=== PATIENT | male | born 1990 | race Caucasian/White ===

== ENCOUNTER → 2017-11-05 | Outpatient (CLI) | payer BC ==
--- NOTE | 2017-11-05 13:00 | CT ---
EXAMINATION TYPE: CT abdomen w con DATE OF EXAM: 11/05/2017 COMPARISON: NONE HISTORY: Upper Abdominal pain with nausea for 4-[address] DLP: 1335 mGycm Automated exposure control for dose reduction was used. TECHNIQUE: Helical acquisition of images was performed from the lung bases through the top of iliac crest to include entire abdomen. CONTRAST: Performed with Oral Contrast and with IV Contrast, patient injected with 93 mL of Isovue 300. FINDINGS: LUNG BASES: Punctate granulomas seen within the right lower lobe on series 4 image 8 and series 3 lucinda ge [id number]. Minimal right basilar subsegmental atelectasis is seen. LIVER/GB: No radiopaque calculi. The liver enhances homogeneously. PANCREAS: No significant abnormality is seen. No ductal dilatation. SPLEEN: No splenomegaly. ADRENALS: No thickening or nodularity. KIDNEYS: No hydronephrosis. The kidneys enhance and excrete symmetrically. BOWEL: No dilated bowel to indicate obstruction. Very mild bowel wall prominence is seen within the left mid abdominal clustered jejunal loops that are nondilated. Appendix is air-filled and within nor mal limits of size. Mild diastases recti is noted. No pericolonic or perienteric inflammatory change. LYMPH NODES: No greater than 1 cm short axis lymph nodes are seen within the abdomen. OSSEOUS STRUCTURES: No significant abnormality is seen. FREE AIR: No free air is visualized. IMPRESSION: NO EVIDENCE OF BOWEL OBSTRUCTION. APPENDIX IS AIR-FILLED AND WITHIN NORMAL LIMITS. VERY MILD LEFT MID ABDOMINAL JEJUNAL BOWEL WALL PROMINENCE MAY RELATE TO A NONSPECIFIC INFLAMMATORY OR INFECTIOUS ENTER ITIS. NO SURROUNDING INFLAMMATORY CHANGE.
== END | disposition home or self-care (01) ==
LOC: RADCTMAIN 11:35
PROVIDERS: ATTEND Family Medicine
DX: R10.9 Unspecified abdominal pain (principal)
CPT/HCPCS: 74160; Q9967